=== PATIENT | male | born 1965 | race Caucasian/White ===

== ENCOUNTER 2017-01-28 00:50 | Emergency (ER) | payer MEDICAID ==
[~2017-01-28] VITALS: Ht 165.1 cm; Wt 63.6 kg
[2017-01-28] MEDS ORDERED: LORazepam 2 MG/ML VIAL IM ONE (01:45)
[2017-01-28] MEDS ORDERED: MORPHINE SULFATE 10 MG/ML SYRINGE IM ONE (01:45)
[2017-01-28 05:42] VITALS: BP 130/85
[2017-01-28] MEDS ORDERED: ACETAMINOPHEN 500 MG TABLET PO ONE (05:45)
[2017-01-28] MEDS ORDERED: KETOROLAC TROMETHAMINE 60 MG/2 ML VIAL IM ONE (06:00)
== END 2017-01-28 06:07 | disposition home or self-care (01) ==
LOC: EMS 00:52
DX: S40.012A Contusion of left shoulder, initial encounter (principal); X58.XXXA Exposure to other specified factors, initial encounter; Y93.89 Activity, other specified; Y92.89 Other specified places as the place of occurrence of the external cause; Y99.8 Other external cause status
CPT/HCPCS: 71010; 73030; 96372; 99284; J2060; J2270; J1885